=== PATIENT | female | born 1960 | race Hispanic/Latino ===

== ENCOUNTER 2019-02-20 11:45 | Day surgery (SDC) | payer OTHER ==
[~2019-02-20 11:45] MED LIST: SODIUM CHLORIDE 0.9% 1000 ML 1,000 ML IV SCH
[2019-02-20] MEDS ORDERED: fentaNYL 100 MCG/2 ML INJ ONE (13:14)
[2019-02-20] MEDS ORDERED: PROPOFOL 200 MG/20 ML VIAL IV ONE (13:15)
[2019-02-20] MEDS ORDERED: WATER FOR IRRIG STERILE 250 ML BOTTLE IR ONE (13:18)
--- NOTE | 2019-02-20 13:49 | Procedure Note ---
Date of procedure: 02/20/19 Pre-op diagnosis: Dysphagia/ Colon Polyp Screening/ F/H/O Colon Cancer (father) Post-op diagnosis: other (Dysphagia secondary to Esophageal Ulcer.Moderate,Erosive Esophagitis/Gastritis/No Peptic Ulcer Disease noted/Minor,Left Colon diverticuli/Solitary,Small (possibly Hyperplastic ) Rectal Polyp,Minor,Internal Hemorrhoid.) Procedure: EGD with Biopsy and Colonoscopy with cold Biopsy Anesthesia: MAC Surgeon: MALIK ABREU Estimated blood loss: minimal Pathology: list Specimen disposition: to lab Condition: stable Disposition: same day (Treat with PPI and encourage fiber intake and avoid aspirin and NSAID for 4 days and follow up in 1 to 2 weeks ([phone]).)
--- NOTE | 2019-02-20 13:52 | Operative Report ---
PROCEDURE: Esophagogastroduodenoscopy with biopsy. INDICATIONS: This is a 58-year-old white female who has a history of taking Excedrin, who has been complaining of dysphagia. EGD was done to make sure that there was not any significant esophageal stenosis or significant upper GI pathology present accounting for the patient's symptoms. DESCRIPTION OF PROCEDURE: Procedure was done after getting informed consent with MAC anesthesia. Instrument was passed through the hypopharynx into the esophagus, which showed presence of esophageal ulcer and moderate erosive esophagitis. Photodocumentation was obtained. The distal esophagus was patent and did not require dilation. Dysphagia was probably secondary to the presence of the esophageal ulcer. Stomach showed antral gastritis. Biopsy was done from the gastric antrum and the gastric body and angular incisura to rule out for H. pylori and atrophic gastritis. The pylorus was patent. The duodenum in the first and the second portion appeared normal. ASSESSMENT: Dysphagia secondary to esophageal ulcers, moderate erosive esophagitis, gastritis, patent pylorus. PLAN: Plan is to treat the patient with PPI, have the patient avoid aspirin and aspirin-related products for the next 5 days. Encouraged the patient to refrain from using Excedrin and possibly use Tylenol instead and to do a colonoscopy as part of colon polyp screening since the patient also has a family history of colon cancer. The procedure was done in the GI lab with assistance of the GI lab team, which included RN, Marylou Baker and with assistance of anesthesia. The patient will be treated with PPI. JOB# [id number] ELLYN/AUDRA
--- NOTE | 2019-02-20 13:55 | Operative Report ---
PROCEDURE: Colonoscopy with biopsy. INDICATIONS: The patient is a 58-year-old white female with prior history of colon polyp and a family history of colon cancer. The patient's father had colon cancer. DESCRIPTION OF PROCEDURE: Colonoscopy was done following an EGD, which was done because of dysphagia and showed moderate erosive esophagitis and gastritis, but no peptic ulcer disease. Initial rectal exam was unremarkable. The procedure was done with MAC anesthesia. Instrument was passed through the rectum onto the cecum, which was identified with ileocecal valve and the appendiceal orifice. Visualization was fair to good. The terminal ileum was briefly intubated and showed normal mucosa, cecum, ascending colon, and transverse colon showed normal mucosa. There were a few minor diverticula noted in the left colon and the rectum showed a solitary small flat polyp, possibly hyperplastic that was removed by cold biopsy and minor internal hemorrhoid was noted on the retroverted view. There was minimal bleeding from the polypectomy site and no complications associated with the procedure. ASSESSMENT: Colon polyp screening, solitary small possibly hyperplastic rectal polyp, a few left colon diverticula, minor internal hemorrhoid. Normal ileal mucosa. The patient will be asked to avoid aspirin and aspirin-related products for the next few days. Encouraged to take fiber supplements, treated with PPI because of the EGD findings of esophageal ulcer, moderate erosive esophagitis, and gastritis. She will be advised to refrain from the use of Excedrin and follow up in the office in 1-2 weeks' time. The procedure was done in the GI lab with assistance of the GI lab team, which included CHRIS Shore as well as Marylou barriga and the assistance of anesthesia. JOB# [id number] ELLYN/AUDRA
[2019-02-20 14:08] VITALS: BP 112/61
--- NOTE | 2019-02-20 16:46 | Anesthesia Consultation ---
Anesthesia Consult and Med Hx Date of service: 02/20/19 - Airway Anesthetic Teeth Evaluation: Dentures ROM Head & Neck: Adequate Mental/Hyoid Distance: Adequate Mallampati Class: Class II Intubation Access Assessment: Good - Pulmonary Exam CTA: Yes - Cardiac Exam Cardiac Exam: RRR - Pre-Operative Health Status ASA Pre-Surgery Classification: ASA2 Proposed Anesthetic Plan: MAC
--- NOTE | 2019-02-20 16:47 | Post Anesthesia Evaluation ---
- Post Anesthesia Evaluation Patient Participated: Yes Airway Patent: Yes Stable Respiratory Function: Yes Nausea/Vomiting: No Temp > 96.8F: Yes Pain Manageable: Yes Adequeate Hydration: Yes Anesthesia Complications: No Block Receding Appropriately: Not Applicable Patient on Ventilator: No
--- NOTE | 2019-02-20 16:47 | Anesthesia Day of Surgery ---
Anesthesia Day of Surgery - Day of Surgery Patient Examined: Yes Patient H&P Reviewed: Yes Patient is NPO: Yes
== END 2019-02-20 11:46 | disposition home or self-care (01) ==
LOC: GIO 11:45
DX: Z12.11 Encounter for screening for malignant neoplasm of colon (principal); K62.1 Rectal polyp; R13.10 Dysphagia, unspecified; K22.10 Ulcer of esophagus without bleeding; K29.70 Gastritis, unspecified, without bleeding; K57.30 Diverticulosis of large intestine without perforation or abscess without bleeding; K64.8 Other hemorrhoids; Z80.0 Family history of malignant neoplasm of digestive organs; Z86.010 Personal history of colon polyps; Z79.899 Other long term (current) drug therapy
CPT/HCPCS: 43239; 45380; 88305; 88342; J2704; J3010; J7030